=== PATIENT | female | born 1990 | race Caucasian/White ===

== ENCOUNTER 2019-04-07 01:14 | Emergency (ER) | payer SELFPAY ==
[2019-04-07 01:15] VITALS: BP 118/57; PULSE 99; RESP 15; TEMP 37.2; O2SAT 98; BMI 40.6
--- NOTE | 2019-04-07 01:28 | US_ITS ---
STUDY: FIRST TRIMESTER OBSTETRICAL ULTRASOUND REASON FOR EXAM: Female, 28 years old bleeding, beta hCG 81,517 LMP: 03/07/2019 TECHNIQUE: Transvaginal TECHNICAL QUALITY: Adequate. PRIOR ULTRASOUND: None. FINDINGS: There is visualization of a single gestational sac in a normal intrauterine position. The gestational sac is 3.75 cm in diameter. The gestational sac shape is within normal limits. There is a visualized yolk sac. The yolk sac measures 7.5 mm. The placenta is non-visualized. There is visualization of a live embryo. The crown-rump length (CRL) measures 2.17 cm, indicating an estimated gestational age (EGA) of 8 weeks, 6 days. There is demonstrated cardiac activity with a heart rate of 11/09/2019 bpm. The estimated gestation age (EGA) by LMP is 4 weeks, 3 days. The estimated date of delivery (ADELINA) by LMP is 12/12/2019. The estimated gestation age (EGA) by US is 9 weeks, 1 days. The estimated date of delivery (ADELINA) by US is 11/09/2019. The uterus measures 11.6 x 7.2 x 5.2 cm. There is no demonstrated uterine fibroid. The cervix is closed. The ovaries are not seen. There is no fluid in the cul de sac. US/Transvaginal w/Preg US IMPRESSION: Intrauterine gestation with sonographic age of 9 weeks 1 day. Cervix is closed. Positive cardiac activity. Electronically Signed: Kameron Shay MD at 3:29 EDT Tel , Service support ,
[2019-04-07 01:47] LABS: Hematocrit 34.8 % (37-47); Hemoglobin 10.5 g/dL (12.0-15.0)
--- NOTE | 2019-04-07 01:54 | ED.DCSUM_ITS ---
- ER Visit Summary Date of Service: 04/07/19 Chief Complaint: Bleeding in early History of Present Illness: The patient is a 28 F who states that she is . She tells me these couple weeks ago she went to a clinic was told that she was probably 6 to 8 weeks however on an ultrasound they could not visualize a IUP. Was felt that it was too early. She cannot tell me what clinic this was. She states she has been having some pelvic cramping off and on today. However at work cramping got worse and she went to the bathroom and noticed some vaginal bleeding. No passage of tissue or leakage of fluid. G4, P3 Ab0. 3 prior pregnancies were term and delivered via . She does not currently have a WATER SERVICE DISPATCHER. She does not know her blood type. She is taking vitamins. She does not smoke. Physical Examination: Afebrile vital signs are stable Gen: Well-nourished well-developed Head: Normocephalic atraumatic Eyes: Perrl EOMI ENT: TMs clear no rhinorrhea moist mucous membranes Neck: Supple no lymphadenopathy no JVD nontender CVS: Regular rate rhythm no murmurs normal S1-S2 Respiratory: No distress clear to auscultation bilaterally chest nontender Abdomen: Soft nontender nondistended normal bowel sounds no masses Back: Nontender Extremity: Nontender no edema Skin: Normal color no rash Neuro: alert orientated ?3 CN II-XII intact normal strength sensation reflexes gait cerebellar Psych: She is tearful Test Results: She is blood type is a positive. Hemoglobin 10.5. Quantitative hCG 8 06/24/2016. Pelvic ultrasound demonstrated single live intrauterine with heart rate of 160. Measuring 9 weeks and 1 day. Emergency Department Course and Treatment: Patient will be given precautions work restrictions. She is to establish WATER SERVICE DISPATCHER care. Dr. Wynn is on-call for WATER SERVICE DISPATCHER tonight and she will be referred there Impression: 1. Threatened miscarriage This note was generated with [id number] dictation software. It may contain incorrect words, spelling, and punctuation that were not noted in review of the chart prior to signing ED Disposition - Plan for ED Patient: Disposition: Home or Assisted Living Instructions: POSSIBLE MISCARRIAGE (Threatened ) Referrals: Miguel Wynn MD [STAFF PHYSICIAN] - As soon as possible (Call on Tuesday to arrange follow-up)
[2019-04-07] MEDS: Acetaminophen 500 MG Tablet 1000 MG PO (02:16)
[2019-04-07 03:31] VITALS: RESP 16
[2019-04-07 03:36] VITALS: BP 104/64; PULSE 75; RESP 15; O2SAT 100
== END 2019-04-07 03:50 | disposition home or self-care (01) ==
PROVIDERS: Emergency Provider Emergency Medicine
DX: O20.0 Threatened abortion (principal); Z3A.09 9 weeks gestation of pregnancy
CPT/HCPCS: 76817; 84702; 85014; 85018; 86900; 86901; 99284; A4216

== ENCOUNTER 2019-07-05 04:54 | Emergency (ER) | payer MEDICAID, SELFPAY ==
[2019-07-05 04:55] VITALS: BP 121/68; PULSE 89; RESP 20; TEMP 37.2; O2SAT 100; BMI 40.8
--- NOTE | 2019-07-05 05:05 | EKG12_ITS ---
Test Reason : DYSRHYTHMIA Blood Pressure : / mmHG Vent. Rate : 090 BPM Atrial Rate : 090 BPM P-R Int : 140 ms QRS Dur : 092 ms QT Int : 356 ms P-R-T Axes : 037 -28 021 degrees QTc Int : 435 ms Normal sinus rhythm Normal ECG Confirmed by ISELA AMES, AMY ([id number]), society editor JAIME DIAZ ([id number]) on 07/09/2019 12:12:45 PM Referred By: BB Confirmed By:AMY WEISS MD
--- NOTE | 2019-07-05 05:06 | ED.DCSUM_ITS ---
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 She presents after a syncopal episode. She had a lot of nausea and vomiting in early , that is improved but she still gets nauseated and vomits from time to time. She felt nauseated at one point tonight, so she walked down the steps to the bathroom. She urinated without any apparent difficulty, afterwards she vomited, and was feeling lightheaded. She left the bathroom in less than 1 minute after vomiting and leaving the bathroom, her lightheadedness became worse to the point of passing out. She had no other prodromal symptoms. She thinks she may have felt her heart beating a little fast right before hand, but she did not feel any prodromal palpitations prior to that her chest pain. Right before losing consciousness she felt like it was a little hard to breathe but she felt no prodromal dyspnea prior. Last week she had a similar episode but it was a near syncopal episode and she had no dyspnea or chest symptoms with that. She has been feeling the baby move normally. She has had no vaginal bleeding or leakage. After the episode last week she visited her BOILERMAKER WELDER, and she states that everything checked out. Her urinalyses have been good with no signs of protein. She has had no swelling in her legs or pains in her calves. She has had no history of DVT or PE in the past. No recent long travel. No recent illness. Has been eating and drinking okay but not an excessive amount of fluid. When she passed out today, she did hit the back of her head but it is where she has her hair bunched up in a ponytail. She does have a mild-moderate headache. Denies any peripheral neurologic symptoms or vision changes at this time and states that although she does feel a little lightheaded, she is feeling much better than she did earlier. Past Medical History - Allergies and Home Meds Allergies/Adverse Reactions: Allergies No Known Allergies Allergy (Verified 07/05/19 04:55) Primary Care Physician: Care Physician,No Primary [Primary Care Provider] - Lives: Spouse/ Significant Other Smoking Status: Former smoker Review of Systems General: Denies: Chills, Fever, Sweats Eyes: Denies: Visual changes - bilaterally, Diplopia ENT: Denies: Bilateral ear pain, Rhinorrhea, Sore throat Cardiovascular: Denies: Chest pain, Palpitations Respiratory: Denies: Dyspnea, Cough, Dyspnea on exertion Gastrointestinal: Reports: Nausea, Vomiting. Denies: Abdominal pain, Diarrhea, Melena, Hematochezia Genitourinary: Denies: Dysuria, Hematuria, Frequency Musculoskeletal: Denies: Neck pain, Back pain, Swelling, Extremity Pain Skin: Denies: Rash, Wounds Neurological: Reports: Headache. Denies: Weakness, Numbness Physical Exam Vital Signs/Narrative: Vital Signs Temp Pulse Resp BP Pulse Ox 07/05/19 04:55 99.0 F 89 20 H 121/68 H 100 Inital Vital Signs reviewed: Yes General: Well nourished, Well developed, No Acute Distress Head: Normocephalic, Tenderness - mild throughout occiptial scalp, no crepitance, hematoma, laceration, or depression. Eyes: Perrl, EOMI ENT: Moist mucous membranes, No rhinorrhea, TM's clear - no HT, - - no bravo sign. no facial trauma/tenderness.. Negative for: Sinus tenderness Neck: Supple, Nontender, No JVD, - - trachea midline Cardiovascular: Regular rate, Regular rhythm, No murmurs, Normal S1, Normal S2. Negative for: Tachycardia Respiratory: No distress, CTA bilaterally, Chest nontender Abdomen: Soft, Nontender, Normal bowel sounds, - - gravid uterus, to around the umbilicus Back: Nontender, Normal Inspection. Negative for: CVA tenderness, Spinal tenderness Extremities: Nontender, No edema. Negative for: Calf Tenderness Skin: Normal color, No rash, No Trauma Neurological: Alert, Oriented x3, Cranial nerves II-XII grossly intact, Normal Strength, Normal Sensation Psychological: Normal affect, Normal Mood Diagnostic/Tx/Re-eval Laboratory Results 07/05/19 07/05/19 05:20 05:20 WBC 6.3 RBC 4.18 L Hgb 9.7 L Hct 31.9 L MCV 76.3 L MCH 23.2 L MCHC 30.4 L RDW Std Deviation 47.8 H RDW Coeff of Ivanna 17.4 H Plt Count 228 MPV 10.4 Immature Gran % (Auto) 0.500 Neut % (Auto) 75.9 H Lymph % (Auto) 17.4 L [place] % (Auto) 4.6 Eos % (Auto) 1.3 Baso % (Auto) 0.3 Absolute Neuts (auto) 4.8 Absolute Lymphs (auto) 1.10 Nucleated RBC % 0 Sodium 138 Potassium 3.5 Chloride 110 H Carbon Dioxide 23.0 Anion Gap 5 BUN 4 L Creatinine 0.42 L Estim Creat Clear Calc 153.50 Est GFR (MDRD) Af Amer 224 Est GFR (MDRD) Non-Af 186 BUN/Creatinine Ratio 9.5 L Glucose 119 H Calcium 8.4 L Troponin I < 0.015 - Rhythm Strip Rhythm Strip: Sinus Rhythm Rate: 70 Ectopy: None - EKG Initial EKG Interpretation: Sinus Rhythm, No Acute Injury Pattern - normal EKG - Medical Decision Making heart tones 140s. Orthostatics were unremarkable, patient was given a liter of IV fluid. As she was laying supine, she was feeling a little more lightheaded with no significant change in her vital signs except her blood pressure going down to the high 80s systolic. I had a roll over onto her left side and lie flat left lateral decubitus for a little while, she felt much better. Unknown if this was uterine mass-effect on her IVC affecting preload or not, she is a little early in for that, but it is possible. I discussed this with her. More importantly, I suspect she had a vasovagal episode causing her syncopal episode. She admits she was not drinking as much fluid since she was 5 or 6 hours into work. She was also lightly exerting herself up and down lots of stairs, and she vomited and urinated just prior to the onset of lightheadedness and syncope, likely causing a Valsalva that could have caused her symptoms in context of mild dehydration. After the IV fluids and sitting her up she is feeling well her blood pressures in the 90s, she is a little anemic but not too much worse than she was 4 months ago. I advised drinking plenty of fluids and following up with her OB and she is comfortable with that plan. Also with regards to her head injury, she was given Tylenol for her headache, I met a very low suspicion for intracranial injury. I do not think she needs a CT at this time, especially given her . I discussed this with her and family as well, she is in agreement. Again we discussed reasons to return with regards to this, with signs and symptoms that may indicate more than what seems to be a minor head injury. ED Disposition - Plan for ED Patient: Disposition: Home or Assisted Living Diagnosis: Syncope, vasovagal, Closed head injury without concussion, Second trimester Instructions: SYNCOPE, Vasovagal, HEAD INJURY, No Wake-Up (Adult) Referrals: BOILERMAKER WELDER, your [Other] (2-7 days) Additional Instructions: Make sure you are drinking plenty of fluids.
[2019-07-05] MEDS: Acetaminophen 500 MG Tablet 1000 MG PO (05:21)
[2019-07-05] MEDS: Ondansetron 4 MG/2 ML Vial IV (05:21)
[2019-07-05] MEDS: 0.9% Normal Saline 1,000 ML 999 ML IV (05:21)
[2019-07-05 05:38] VITALS: BP 105/63; BP 108/69; BP 111/71; PULSE 80; PULSE 82; PULSE 99
[2019-07-05 05:39] LABS: Absolute Neutrophil Count 4.8 X10^3/uL (2.0-7.7); Basophil# 0.02 X10^3/uL; Basophil% 0.3 % (0-1); Eosinophil# 0.08 X10^3/uL; Eosinophils% 1.3 % (0-5); Hematocrit 31.9 % (37-47); Hemoglobin 9.7 g/dL (12.0-15.0); Lymphocyte % 17.4 % (19-41); Mean Corp Hgb Conc 30.4 g/dL (32-36); Mean Corpuscular Hgb 23.2 pg (27.0-32.0); Mean Corpuscular Volume 76.3 fL (81-99); Mean Platelet Vol. 10.4 fl (6.2-12.0); Monocyte# 0.29 X10^3/uL; Monocyte% 4.6 % (0-10); NRBC Flagged by Analyzer 0 % (0-5); Neutrophil # 4.82 X10^3/uL (2.7-7.7); Neutrophil % 75.9 % (47-70); Platelet Count 228 K/mm3 (150-450); RBC Distribution Width CV 17.4 % (11.6-14.6); RBC Distribution Width SD 47.8 fl (35.1-43.9); Red Blood Count 4.18 M/mm3 (4.2-5.4); White Blood Count 6.3 K/mm3 (4.4-11.0)
[2019-07-05 06:12] LABS: Anion Gap 5 (5-15); BUN 4 mg/dL (7-18); BUN/Creat Ratio 9.5 RATIO (10-20); Calcium,Total 8.4 mg/dL (8.5-10.1); Chloride 110 mmol/L (98-107); Creatinine, Serum 0.42 mg/dL (0.55-1.02); EST Glomerular Filtration Rate 186 mL/min (>60); Est Glom Filt Rate - Afr Amer 224 mL/min (>60); Glucose 119 mg/dL (74-106); Potassium 3.5 mmol/L (3.5-5.1); Sodium Level 138 mmol/L (136-145)
[2019-07-05 06:31] VITALS: BP 96/52; PULSE 69; RESP 18; O2SAT 100
[2019-07-05 06:50] VITALS: BP 99/58; PULSE 79; RESP 17; O2SAT 100
--- NOTE | 2019-07-05 06:50 | ED.RN ---
PATIENT REPORTS DIZZINESS CONTINUES AFTER BEING ON LEFT SUPINE POSITION.
== END 2019-07-05 07:30 | disposition home or self-care (01) ==
PROVIDERS: Emergency Provider Emergency Medicine
DX: O26.892 Other specified pregnancy related conditions, second trimester (principal); R55 Syncope and collapse; O9A.212 Injury, poisoning and certain other consequences of external causes complicating pregnancy, second trimester; S09.90XA Unspecified injury of head, initial encounter; W19.XXXA Unspecified fall, initial encounter; Y93.9 Activity, unspecified; Y92.9 Unspecified place or not applicable; Y99.9 Unspecified external cause status; Z3A.22 22 weeks gestation of pregnancy; Z87.891 Personal history of nicotine dependence
CPT/HCPCS: 80048; 84484; 85025; 93005; 96361; 96374; 99285; J7030; A4216; J2405

== ENCOUNTER 2020-08-25 01:28 | Emergency (ER) | payer OTHER, MEDICAID, SELFPAY ==
[2020-08-25 01:28] VITALS: BP 116/69; PULSE 83; RESP 15; TEMP 36.9; O2SAT 100; BMI 40.6
--- NOTE | 2020-08-25 01:49 | ED.VISSUMM ---
- ER Visit Summary Date of Service: 08/25/20 Chief Complaint: Left posterior shoulder pain History of Present Illness: The patient is a 30 F no significant past medical history. Prior C-sections. 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 She does a lot of moving of boxes. Said Tuesday morning she thinks she hurt her left shoulder and since that time is had pain in the posterior soft tissue of her shoulder. No prior history of shoulder problems nor any prior surgery. No fever or chills. No redness or warmth. No other complaints. Physical Examination: Young female no acute distress vital signs stable afebrile. H EENT exam unremarkable. Neck nontender no lymphadenopathy. Lungs clear to auscultation bilaterally. Heart regular rhythm no murmur. Abdomen soft nontender normal bowel sounds no peritoneal signs. Patient is moving all 4 extremities. Neurovascular intact. Normal 5-5 threat analyst strength. Normal dorsi plantarflexion. Normal sensation in all 4 extremities. Normal range of motion in all 4 extremities. Back exam cervical, thoracic lumbar spine are all completely nontender. There is no ecchymosis or bruising. She has tenderness along the soft tissue along her shoulder blade consistent with myofascial strain and spasm. There is no bony deformity. Neurologic exam is normal. She has normal strength and sensation in all 4 digits. Test Results: None. Emergency Department Course and Treatment: History and exam are consistent with a myofascial strain and muscle spasm the left posterior shoulder. No imaging or lab work is necessary. Treatment Plan: Motrin for pain and swelling. Skelaxin as a muscle relaxant. Light duty at work increase as tolerated. Hot shower warm bath to relax the muscle. Disposition: Discharge Impression: Acute left posterior shoulder myofascial strain and spasm Worker's Comp. injury This note was generated with [employer] dictation software. It may contain incorrect words, spelling, and punctuation that were not noted in review of the chart prior to signing ED Disposition - Plan for ED Patient: Disposition: Home or Assisted Living Instructions: ED Muscle Strain, Extremity Prescriptions: Metaxalone [Skelaxin] 800 mg PO TID #21 tab Prescription Printed Referrals: [facility] [GROUP OF PHYSICIANS] - 1 Week if not improving Additional Instructions: You have a strained muscle muscle spasm in your left posterior shoulder. Motrin for pain and inflammation and Tylenol. Skelaxin the muscle relaxant as needed for muscle spasm. Light duty at work until pain is resolved. Follow-up with corporate care as needed if not improving.
--- NOTE | 2020-08-25 01:52 | ED.DEP ---
ED Disposition - Plan for ED Patient: Disposition: Home or Assisted Living Instructions: ED Muscle Strain, Extremity Prescriptions: Metaxalone [Skelaxin] 800 mg PO TID #21 tab Prescription Printed Referrals: [facility] [GROUP OF PHYSICIANS] - 1 Week if not improving Additional Instructions: You have a strained muscle muscle spasm in your left posterior shoulder. Motrin for pain and inflammation and Tylenol. Skelaxin the muscle relaxant as needed for muscle spasm. Light duty at work until pain is resolved. Follow-up with corporate care as needed if not improving.
[2020-08-25] MEDS: Ibuprofen 400 MG Tablet 800 MG PO (02:45)
--- NOTE | 2020-08-25 03:25 | ED.RN ---
PT NOTIFIED THAT HER WATER CUP WAS LEFT IN ROOM & HAS BEEN GIVEN TO SECURITY.
== END 2020-08-25 02:50 | disposition home or self-care (01) ==
LOC: ED 02:40
PROVIDERS: Emergency Provider Emergency Medicine
DX: S46.912A Strain of unspecified muscle, fascia and tendon at shoulder and upper arm level, left arm, initial encounter (principal); M62.838 Other muscle spasm; X58.XXXA Exposure to other specified factors, initial encounter; Y93.89 Activity, other specified; Y92.89 Other specified places as the place of occurrence of the external cause; Y99.0 Civilian activity done for income or pay
CPT/HCPCS: 99283